=== PATIENT | male | born 1970 | race Two or more races ===

== ENCOUNTER 2019-08-07 18:48 | Emergency (ER) | payer OTHER ==
[~2019-08-07] VITALS: Ht 175.3 cm; Wt 95.3 kg
[2019-08-07] MEDS ORDERED: ATORVASTATIN CA20 MG (19:01)
== END 2019-08-07 22:24 | disposition home or self-care (01) ==
LOC: ER 18:48
DX: S13.4XXA Sprain of ligaments of cervical spine, initial encounter (principal); S33.5XXA Sprain of ligaments of lumbar spine, initial encounter; R07.89 Other chest pain; V49.88XA Car occupant (driver) (passenger) injured in other specified transport accidents, initial encounter; Y93.89 Activity, other specified; Y92.488 Other paved roadways as the place of occurrence of the external cause; Y99.8 Other external cause status